=== PATIENT | male | born 1970 | race Caucasian/White ===

== ENCOUNTER 2016-11-06 16:59 | Emergency (ER) | payer SELFPAY ==
[2016-11-06 17:41] VITALS: BP 104/72
[2016-11-06] MEDS ORDERED: Penicillin VK TAB* 250 MG PO ONE (18:07)
--- NOTE | 2016-11-06 18:15 | UC ---
[facility] HPI - HPI Summary HPI Summary: dental pain x 2 days swelling unable to sleep last pm despite NSAIDs no f/c no n/v - History of Current Complaint Chief Complaint: UCDentalProblem Stated Complaint: DENTAL COMPLAINT Time Seen by Provider: 11/06/16 17:54 Hx Obtained From: Patient Onset/Duration: Gradual Onset, Lasting Days Severity: Severe Pain Intensity: 8 Pain Scale Used: 0-10 Numeric Aggravating: Heat, Cold, Chewing Alleviating: Nothing Related History: Swelling - Allergies/Home Medications Allergies/Adverse Reactions: Allergies Allergy/AdvReac Type Severity Reaction Status Date / Time Codeine Allergy Unknown Verified 11/06/16 17:41 Reaction Details PMH/Surg Hx/FS Hx/Imm Hx Previously Healthy: Yes - Surgical History Surgical History: Yes Surgery Procedure, Year, and Place: HERNIA REPAIR - Family History Known Family History: Positive: Hypertension Negative: Cardiac Disease, Diabetes - Social History Alcohol Use: None Substance Use Type: None Smoking Status (MU): Heavy Every Day Tobacco Smoker Type: Cigarettes Amount Used/How Often: 1 pack daily Review of Systems Constitutional: Negative Skin: Negative Eyes: Negative ENT: Dental Pain Respiratory: Negative Cardiovascular: Negative Gastrointestinal: Negative Genitourinary: Negative Motor: Negative Neurovascular: Negative Musculoskeletal: Negative Neurological: Negative Psychological: Negative All Other Systems Reviewed And Are Negative: Yes Physical Exam Triage Information Reviewed: Yes Appearance: Well-Appearing, No Pain Distress, Well-Nourished Vital Signs: Initial Vital Signs Temp 97.8 F 11/06/16 17:37 Pulse 57 11/06/16 17:37 Resp 16 11/06/16 17:37 BP 104/72 11/06/16 17:37 Pulse Ox 100 11/06/16 17:37 Vital Signs Reviewed: Yes Eyes: Positive: Conjunctiva Clear ENT Exam: Normal Dental: Positive: Abscess @ Neck: Positive: Supple, Enlarged Nodes @ - right Respiratory: Positive: Lungs clear, Normal breath sounds, No respiratory distress Cardiovascular: Positive: RRR, No Murmur. Negative: Tachycardia Musculoskeletal: Positive: ROM Intact, No Edema Neurological: Positive: Alert Psychological Exam: Normal Skin Exam: Normal Dental Complaint Course/Dx - Differential Dx/Diagnosis Provider Diagnoses: dental abscess Discharge - Discharge Plan Condition: Stable Disposition: HOME Prescriptions: HYDROcodone/ACETAMIN 5-325 MG* [[place] 5-325 TAB*] 1 tab PO Q4H PRN #10 tab MDD 5 PRN Reason: Pain - Severe Penicillin VK TAB 500 MG(NF) [Penicillin VK 500 mg Tab(NF)] 500 mg PO QID #28 tab Patient Education Materials: Dental Abscess (ED) Forms: *Work Release Referrals: No Primary Care Phys,NOPCP [Primary Care Provider] - Additional Instructions: to ER for new or worsening symptoms recheck in 2 days if not better see dentist as planned continue motrin Images Dental: 1 - abscess
== END 2016-11-06 18:19 | disposition home or self-care (01) ==
LOC: UCCORT 16:59
DX: K04.7 Periapical abscess without sinus (principal); F17.210 Nicotine dependence, cigarettes, uncomplicated; Z88.5 Allergy status to narcotic agent
CPT/HCPCS: 99212; A9270-GY; G0463

== ENCOUNTER → 2016-12-18 13:31 | Emergency (ER) | payer SELFPAY | END | disposition home or self-care (01) | LOC: UCCORT 13:31 → OHCORT 13:31 | DX: Z00.00 Encounter for general adult medical examination without abnormal findings (principal) ==

== ENCOUNTER 2017-06-26 13:42 | Emergency (ER) | payer SELFPAY ==
[2017-06-26 14:04] VITALS: BP 126/81
[2017-06-26] MEDS ORDERED: Penicillin VK TAB* 250 MG PO ONE (15:00)
--- NOTE | 2017-06-26 15:00 | UC ---
[facility] HPI - HPI Summary HPI Summary: 46 yo male with left upper tooth pain and cheek swelling x 2 days[ no f/c no relief with NSAIDs - History of Current Complaint Chief Complaint: UCDentalProblem Stated Complaint: DENTAL COMPLAINT Time Seen by Provider: 06/26/17 14:50 Hx Obtained From: Patient Onset/Duration: Gradual Onset, Lasting Days Severity: Moderate Pain Intensity: 6 Pain Scale Used: 0-10 Numeric Aggravating Factor(s): Chewing Alleviating Factor(s): Nothing Related History: Previous Dental Care on Same Tooth, Swelling - Allergies/Home Medications Allergies/Adverse Reactions: Allergies Allergy/AdvReac Type Severity Reaction Status Date / Time MS Codeine [Codeine] Allergy Unknown Verified 06/26/17 14:07 Reaction Details PMH/Surg Hx/FS Hx/Imm Hx Previously Healthy: Yes - Surgical History Surgical History: Yes Surgery Procedure, Year, and Place: HERNIA REPAIR - Family History Known Family History: Positive: Hypertension Negative: Cardiac Disease, Diabetes - Social History Alcohol Use: None Substance Use Type: None Smoking Status (MU): Heavy Every Day Tobacco Smoker Type: Cigarettes Amount Used/How Often: 1 pack daily Length of Time of Smoking/Using Tobacco: since age 16 Have You Smoked in the Last Year: Yes Review of Systems Constitutional: Negative Skin: Negative Eyes: Negative ENT: Dental Pain Respiratory: Negative Cardiovascular: Negative Gastrointestinal: Negative Genitourinary: Negative Motor: Negative Neurovascular: Negative Musculoskeletal: Negative Neurological: Negative Psychological: Negative Is Patient Immunocompromised?: No All Other Systems Reviewed And Are Negative: Yes Physical Exam Triage Information Reviewed: Yes Appearance: Well-Appearing, No Pain Distress, Well-Nourished Vital Signs: Initial Vital Signs Temp 98.9 F 06/26/17 13:57 Pulse 56 06/26/17 13:57 Resp 14 06/26/17 13:57 BP 126/81 06/26/17 13:57 Pulse Ox 100 06/26/17 13:57 Vital Signs Reviewed: Yes Eyes: Positive: Conjunctiva Clear ENT: Positive: Hearing grossly normal, Uvula midline. Negative: Nasal congestion, Nasal drainage, Trismus, Muffled voice, Hoarse voice, Sinus tenderness Dental: Positive: Other: - see image Neck: Positive: Supple, Nontender, No Lymphadenopathy Respiratory: Positive: Lungs clear, Normal breath sounds, No respiratory distress, No accessory muscle use Cardiovascular: Positive: RRR, No Murmur Musculoskeletal: Positive: ROM Intact, No Edema Neurological: Positive: Alert Psychological Exam: Normal Skin Exam: Normal Dental Complaint Course/Dx - Differential Dx/Diagnosis Provider Diagnoses: acute dentalgia Discharge - Discharge Plan Condition: Critical Disposition: HOME Prescriptions: HYDROcodone/ACETAMIN 5-325 MG* [[place] 5-325 TAB*] 1 tab PO Q4H PRN #15 tab MDD 5 PRN Reason: Pain Penicillin VK 500 MG TAB(NF) [Penicillin VK 500 mg Tab] 500 mg PO QID #28 tab Patient Education Materials: Toothache (ED) Referrals: No Primary Care Phys,NOPCP [Primary Care Provider] - Additional Instructions: I suspect a dental abscess continue advil 3 pills 4x day with food to ER for worsening symptoms or if not better in a couple of days see your dentist first available appt Images Head: 1 - swollen Dental: 1 - cracked/tender
== END 2017-06-26 15:12 | disposition home or self-care (01) ==
LOC: UCCORT 13:42
DX: K08.89 Other specified disorders of teeth and supporting structures (principal); Z88.5 Allergy status to narcotic agent; F17.210 Nicotine dependence, cigarettes, uncomplicated
CPT/HCPCS: 99212; A9270-GY; G0463

== ENCOUNTER 2018-10-11 08:43 | Emergency (ER) | payer BC ==
--- NOTE | 2018-10-11 10:29 | ED ---
Complex/Multi-Sys Presentation - HPI Summary HPI Summary: A 47 y/o M presents to ED c/o severe MÉNDEZ onset this AM. Patient was driving to work and pulled over because he felt unsafe. He describes it has feeling "foggy " or "half-drunk." Associated sx: SOB, dizziness. Denies CP at bedside. Pert PMHx: Last week on 10/04, patient had chest aches radiating to his LUE and back with SOB. He was evaluated at [facility], and ultimately had a heart cath on 10/06 and released the next day. Patient has been having sx intermittently since then. - History Of Current Complaint Chief Complaint: EDGeneral Time Seen by Provider: 10/11/18 09:40 Hx Obtained From: Patient, Family/Security Architect, Medical Records Onset/Duration: Gradual Onset, Lasting Hours, Still Present Timing: Constant Severity Currently: Moderate Severity Initially: Moderate Associated Signs And Symptoms: Positive: Dizziness, Headache, SOB. Negative: Chest Pain - Allergies/Home Medications Allergies/Adverse Reactions: Allergies Allergy/AdvReac Type Severity Reaction Status Date / Time MS Codeine [Codeine] Allergy Unknown Verified 10/11/18 08:51 Reaction Details PMH/Surg Hx/FS Hx/Imm Hx Previously Healthy: No Sensory History: Denies: Hx Legally Blind, Hx Deafness Opthamlomology History: Denies: Hx Legally Blind EENT History: Denies: Hx Deafness Neurological History: Denies: Hx Dementia - Surgical History Surgery Procedure, Year, and Place: HERNIA REPAIR Infectious Disease History: No Infectious Disease History: Denies: Traveled Outside the [place] in Last 30 Days - Family History Known Family History: Positive: Hypertension Negative: Cardiac Disease, Diabetes - Social History Occupation: Employed Full-time Lives: With Family Alcohol Use: None Hx Substance Use: No Substance Use Type: Reports: None Hx Tobacco Use: Yes Smoking Status (MU): Heavy Every Day Tobacco Smoker Type: Cigarettes Amount Used/How Often: 1 pack daily Length of Time of Smoking/Using Tobacco: since age 16 Have You Smoked in the Last Year: Yes Review of Systems Negative: Chest Pain Positive: Shortness Of Breath Neurological: Other - pos: dizziness Positive: Headache - and "fogginess" All Other Systems Reviewed And Are Negative: Yes Physical Exam - Summary Physical Exam Summary: Appearance: The patient is well-nourished in no acute distress and in no acute pain. Skin: The skin is warm and dry and skin color reflects adequate perfusion. HEENT: The head is normocephalic and atraumatic. The pupils are equal and reactive. The conjunctivae are clear and without drainage. Nares are patent and without drainage. Mouth reveals moist mucous membranes and the throat is without erythema and exudate. The external ears are intact. The ear canals are patent and without drainage. The tympanic membranes are intact. Neck: the neck is supple with full range of motion and non-tender. There are no carotid bruits. There is no neck vein distension. Respiratory: Chest is non-tender. Lungs are clear to auscultation and breath sounds are symmetrical and equal. Cardiovascular: Heart is regular rate and rhythm. There is no murmur or rub auscultated. There is no peripheral edema and pulses are symmetrical and equal. Abdomen: The abdomen is soft and non-tender. There are normal bowel sounds heard in all four quadrants and there is no organomegaly palpated. Musculoskeletal: There is no back tenderness noted. Extremities are non-tender with full range of motion. There is good capillary refill. There is no peripheral edema or calf tenderness elicited. Neurological: Patient is alert and oriented to person, place and time. The patient has symmetrical motor strength in all four extremities. Cranial nerves are grossly intact. Deep tendon reflexes are symmetrical and equal in all four extremities. Psychiatric: The patient has an appropriate affect and does not exhibit any anxiety or depression. Triage Information Reviewed: Yes Vital Signs On Initial Exam: Initial Vitals Temp Pulse Resp BP Pulse Ox 97.7 F 61 20 129/94 96 10/11/18 08:46 10/11/18 08:46 10/11/18 08:46 10/11/18 08:46 10/11/18 08:46 Vital Signs Reviewed: Yes Diagnostics - Vital Signs Vital Signs Temp Pulse Resp BP Pulse Ox 10/11/18 10:09 56 18 120/87 95 10/11/18 10:00 56 25 92 10/11/18 09:39 55 32 127/95 98 10/11/18 08:46 97.7 F 61 20 129/94 96 - Laboratory Result Diagrams: 10/11/18 10:11 10/11/18 10:11 Lab Statement: Any lab studies that have been ordered have been reviewed, and results considered in the medical decision making process. - Radiology CXR Radiology Interpretation Completed By: Radiologist Summary of Radiographic Findings: IMPRESSION: NO ACTIVE CARDIOPULMONARY DISEASE. ED provider has reviewed this report. - EKG 1001 Cardiac Rate: Bradycardia - 55 bpm EKG Rhythm: Sinus Bradycardia ST Segment: Normal Summary of EKG Findings: No STEMI. Re-Evaluation - Re-Evaluation 1 Re-Evaluation Time: 12:28 Change: Unchanged Comment: Discussing results thus far, and waiting for second trop. Pt c/o MÉNDEZ, will order medication. 2 Re-Evaluation Time: 14:06 Change: Improved Comment: Discussing second trop (unchanged) and plans to D/C. MÉNDEZ has improved. Pt is agreeable with this. Complex Multi-Symp Course/Dx Course Of Treatment: Mr. Mcdowell went to [facility] about a week ago for feeling poorly including chest pain. He apparently failed a stress test and underwent cardiac catheterization. He was told he was fine and started on Prozac. He was trying to drive to work today and complained of a headache and not feeling well again including the chest pain. By the time I see him with chest pain is resolved. He was nontoxic in appearance with stable vitals. While he was here in the department he got fluids and a migraine cocktail consisting of Benadryl, Reglan and ketorolac. He got complete relief of his headache with the above. EKG chest x-ray and labs including a d-dimer and a delayed troponin were all within normal limits. He doesn't have a PCP and I recommended he follow up with [facility] for further workup. - Diagnoses Provider Diagnoses: Migraine headache, Chest pain Discharge - Sign-Out/Discharge Documenting (check all that apply): Patient Departure - D/C Patient Received Moderate/Deep Sedation with Procedure: No - Discharge Plan Condition: Stable Disposition: HOME Patient Education Materials: Chest Pain (ED), Migraine Headache (ED) Referrals: [facility] [Outside] - 3 Days Additional Instructions: Please return to the ED if you experience new or worsening symptoms. Follow up with your primary care provider in 2-3 days. - Billing Disposition and Condition Condition: STABLE Disposition: Home - Attestation Statements Document Initiated by Scribe: Yes Documenting Scribe: SooYoung Torin Provider For Whom Scribe is Documenting (Include Credential): Dr. Garett Solomon MD Scribe Attestation: I, Ivonne Harkins, scribed for Dr. Garett Solomon MD on 10/11/18 at 1456. Scribe Documentation Reviewed: Yes Provider Attestation: The documentation as recorded by the scribe, Ivonne Harkins accurately reflects the service I personally performed and the decisions made by me, Dr. Garett Solomon MD Status of Scribe Document: Viewed
[2018-10-11 10:41] LABS: ABS Eosinophils 0.1 10^3/ul (0-0.6); ABS Lymphocytes 1.7 10^3/ul (1.0-4.8); ABS Monocytes 0.4 10^3/ul (0-0.8); ABS Neutrophils 4.5 10^3/ul (1.5-7.7); Eosinophil % 1.3 %; Hematocrit 45 % (42-52); Hemoglobin 15.5 g/dL (14.0-18.0); Lymphocyte % 25.2 %; Mean Corpuscular HGB Conc 35 g/dL (31-36); Mean Corpuscular Hemoglobin 33 pg (27-31); Mean Corpuscular Volume 94 fL (80-94); Mean Platelet Volume 9.1 fL (7.4-10.4); Platelet Count 219 10^3/uL (150-450); Red Blood Count 4.76 10^6 /uL (4.18-5.48); Red Cell Distribution Width 13 % (10-15); White Blood Count 6.7 10^3/uL (3.5-10.8)
[2018-10-11 10:52] LABS: Albumin 4.5 g/dL (3.2-5.2); Albumin/Globulin Ratio 1.5 (1-3); BUN/Creatinine Ratio 11.6 (8-20); Calcium 9.5 mg/dL (8.6-10.3); EGFR African American 115.8 (>60); EGFR Non-African American 95.7 (>60); Globulin 3.1 g/dL (2-4); Total Bilirubin 0.5 mg/dL (0.2-1.0); Total Protein 7.6 g/dL (6.4-8.9)
[2018-10-11] MEDS ORDERED: NS 0.9% 1000 ML** 1,000 ML IV ONE (12:32)
[2018-10-11] MEDS ORDERED: diPHENhydraMINE PO* 50 MG PO ONE (12:32)
[2018-10-11] MEDS ORDERED: Ketorolac INJ* 30 MG/ML 1 ML VIAL IV PUSH ONE (12:32)
[2018-10-11] MEDS ORDERED: Metoclopramide IV* 5 MG/ML 2 ML VIAL IV ONE (12:32)
[2018-10-11 14:31] VITALS: BP 110/65
== END 2018-10-11 14:32 | disposition home or self-care (01) ==
LOC: ED 08:43
DX: G43.909 Migraine, unspecified, not intractable, without status migrainosus (principal); R07.9 Chest pain, unspecified; F17.210 Nicotine dependence, cigarettes, uncomplicated
CPT/HCPCS: 36415; 71046; 80053; 83605; 83735; 84484; 85025; 93005; 96361; 96374; 96375; 99283; A9270-GY; J1885; J2765